=== PATIENT | female | born 1955 | race Caucasian/White ===

== ENCOUNTER 2019-04-09 14:19 | Inpatient (IN) ==
--- NOTE | 2019-04-09 15:58 | Diag Imaging Result Doc PS360 ---
EXAM: CHEST-PORTABLE 04/09/2019 HISTORY: Chest Pain TECHNIQUE: AP portable upright at 1541 COMMENT: There are perihilar opacities bilaterally which have not changed appreciably since 10/24/2017. Considering differences in projection and technique there has been no significant change. IMPRESSION: Stable chest. Electronically signed by Darwin Dumont 04/09/2019 3:56 PM
--- NOTE | 2019-04-09 15:59 | EKG Report ---
Test Performed on : 04/09/2019 3:37:15 PM Test Reason : Chest Pain Blood Pressure : / mmHG Vent. Rate : 068 BPM Atrial Rate : 068 BPM P-R Int : 142 ms QRS Dur : 084 ms QT Int : 404 ms P-R-T Axes : 057 070 052 degrees QTc Int : 429 ms Normal sinus rhythm. Normal ECG When compared with ECG of 24-OCT-2017 20:16, No significant change was found Confirmed by Anca Jones MD ([id number]) on 04/10/2019 1:00:13 PM
[2019-04-09] MEDS: NITROGLYCERIN TD SCH (16:23)
[2019-04-09] MEDS: MORPHINE IV PRN ×2 (16:24→20:52)
[2019-04-09 16:25] LABS: HEMATOCRIT 40.4 % (37.0-47.0); HEMOGLOBIN 13.1 g/dL (12.0-16.0); MCH 30.4 PG (27-31); MCHC 32.4 g/dL (33-37); MCV 93.7 FL (81-99); RBC 4.31 XMIL (4.2-5.4); WBC 12.49 X1000 (4.8-10.8)
[2019-04-09 16:26] LABS: BASO# 0.06 X1000 (0.0-0.2); BASO% 0.5 % (0.0-0.8); EOS# 0.22 X1000 (0.0-0.7); EOS% 1.8 % (0.0-10.0); IMM GRAN# 0.12 X1000 (0.0-0.04); LYMPH# 2.24 X1000 (1.2-3.4); LYMPH% 17.9 % (20.5-51.1); MONO# 1.23 X1000 (0.11-0.59); MONO% 9.8 % (1.7-9.3); MPV 9.4 FL (7.4-10.4); NEUT# 8.62 X1000 (1.4-6.5); PLT 380 X1000 (130-400); RDW 12.5 % (11.5-14.5)
[2019-04-09 16:32] LABS: INR 0.91; PROTIME 12.3 Seconds (11.0-16.0)
[2019-04-09 16:33] LABS: PTT 29.3 Seconds (22.3-41.8)
[2019-04-09 16:56] LABS: AGAP 13; ALB/GLOB RATIO 1.3; ALBUMIN 4.3 g/dL (3.5-5.0); ALKALINE PHOSPHATASE 109 U/L (32-104); BUN 17 mg/dL (8-22); CALCIUM 9.7 mg/dL (8.8-10.2); CHLORIDE 100 mmol/L (98-107); COSMO 284; CREATININE 0.7 mg/dL (0.5-0.9); ESTIMATED GFR > 60; GLUCOSE 119 mg/dL (70-104); GOT 20 U/L (10-30); GPT 15 U/L (10-36); SODIUM 141 mmol/L (136-145); TCO2 28 mmol/L (25-35); TOTAL BILIRUBIN 0.25 mg/dL (0.20-1.00); TOTAL PROTEIN 7.6 g/dL (6.3-8.3)
--- NOTE | 2019-04-09 18:12 | CONSULTATION ---
DATE OF CONSULTATION: 04/09/2019 IMPRESSION: 1. Constant chest heaviness for the past 3 days or so without interruption. ECG normal and troponin normal. Clinical presentation atypical for myocardial ischemia. 2. Chronic obstructive pulmonary disease. 3. Anxiety/depression. 4. Hypertension. 5. Fibromyalgia. RECOMMENDATIONS: 1. Follow up cardiac enzymes. 2. If cardiac enzymes are negative, pursue cardiac stress study. HISTORY: This 64-year-old white female with a past history of hypertension, anxiety/depression, fibromyalgia, and obesity was admitted to the intensive care unit because of chest discomfort. She has had recent issues with cough and wheezing over a week ago. She was treated for bronchitis. She did not initially take steroid taper, but ultimately got on this last week. She relates for the last 3 days or so she has had constant heaviness in the chest. There have been no other associated symptoms. She does relate also being somewhat anxious and having difficulty with insomnia. However, she has not noted that her usual anxiolytic Klonopin has made much difference in her symptoms nor have bronchodilator inhalers made much difference in her chest symptoms. She returned for follow-up with Dr. Whitt today, and because of persistent chest discomfort, was referred for admission. It is noteworthy that she had evaluation for chest symptoms and preoperative evaluation last year with negative stress myocardial perfusion study and normal echocardiography. She also had a chest CT scan which was negative for evidence of pulmonary embolus. PAST MEDICAL HISTORY: 1. Hypertension. 2. Obesity. 3. Chronic obstructive pulmonary disease. 4. Anxiety/depression. 5. Fibromyalgia. PAST SURGICAL HISTORY: Includes cholecystectomy hysterectomy, tonsillectomy, unspecified back surgery, and unspecified neck surgery. ALLERGIES: She is allergic or intolerant to Cefaclor, penicillins, and adhesive. MEDICATIONS PRIOR TO ADMISSION: As listed. SOCIAL HISTORY: She has history of previous cigarette use in the past, but no longer smokes. FAMILY HISTORY: Negative for premature coronary artery disease. REVIEW OF SYSTEMS: Pulmonary: Noteworthy for some exertional shortness of breath. She has had recent cough which was nonproductive, as well as previous wheezing. Wheezing seems to have abated. Gastrointestinal: Review of systems negative. She is not aware of any tendency for gastroesophageal reflux disease. Constitutional: Review of systems negative/noncontributory. PHYSICAL EXAMINATION: General: Exam reveals a somewhat anxious-appearing obese older white female in no distress on supplemental oxygen per nasal cannula. Vital signs: Blood pressure 119/56, heart rate 87 and irregular, oxygen saturation 96%. HEENT: Extraocular intact. Mucous membranes moist. Neck: Supple without jugular venous distension and there are no carotid bruits. Chest: Auscultation of the chest reveals clear lung carlson bilaterally. Cardiac: Exam reveals a regular rate and rhythm without appreciable murmur, rub, or gallop. Abdomen: Soft. Bowel sounds are normal. Extremities: Without edema. Neurologic: Exam reveals her to be alert and fully oriented. Speech is fluent. She moves all 4 extremities equally well. Skin: Warm and dry. Psychiatric: Exam reveals her to be somewhat anxious. DIAGNOSTIC STUDIES: A 12 lead EKG demonstrates normal sinus rhythm and is within normal limits. Laboratory data includes a white blood cell count 12.49, hematocrit 40.4, hemoglobin 13.1, platelet count 380,000. D-dimer less than 0.27. Sodium 141, potassium 4.0, chloride 100 carbon dioxide 28, BUN 17 creatinine 0.7, glucose 119. CPK 64, troponin T less than 0.01. cc: MD Frandy Cao Jr, MD
[2019-04-09] MEDS: KLONOPIN PO SCH (20:52)
[2019-04-09] MEDS: DESYREL PO SCH (20:52)
[2019-04-09] MEDS: CYMBALTA PO SCH (20:52)
[2019-04-10] MEDS: NITROGLYCERIN TD SCH ×3 (05:53→21:21)
[2019-04-10] MEDS: BREO ELLIPTA 200/25 MCG INH INH SCH (07:53)
--- NOTE | 2019-04-10 09:35 | PROGRESS NOTE ---
DATE: 04/10/2019 SUBJECTIVE: The patient says she feels much better. I asked her if she had any chest pain, she says just very slight. OBJECTIVE: Vital Signs: Stable with a blood pressure 123/66, respirations 16, pulse 64, oxygen saturation 90 to 92 percent on room air. Temperature is 97.9 degrees Fahrenheit. HEENT: She is normocephalic. EOMS intact. PERRLA. Throat clear. Lungs: Clear to auscultation and percussion without rhonchi, rales, or wheezes. Heart: Regular rate and rhythm without murmurs, gallops, friction rubs. Abdomen: Soft. Active bowel sounds. No organomegaly or tenderness. Neurological: Intact grossly. ASSESSMENT AND PLAN: Enzyme studies for cardiac damage have all been negative. Cardiology is seeing and will plan a stress test. cc: Frandy Whitt Jr, MD
[2019-04-10] MEDS: CYMBALTA PO SCH ×2 (09:53→20:11)
[2019-04-10] MEDS: AVAPRO PO SCH (09:53)
[2019-04-10] MEDS: HYDROCHLOROTHIAZIDE PO SCH (09:53)
[2019-04-10] MEDS ORDERED: LEXISCAN ONE (13:17)
[2019-04-10] MEDS: MORPHINE IV PRN ×2 (15:17→21:43)
--- NOTE | 2019-04-10 16:26 | Diag Imaging Result Document ---
PROCEDURE NAME: MYOCARDIAL PERF SCAN, STR/REST - 04/10/2019 LEXISCAN SESTAMIBI INTERPRETATION: SUMMARY: The patient was administered 12.6 mCi of technetium-99m sestamibi, after which resting cardiac images were obtained. The patient was subsequently administered Lexiscan 0.4 mg intravenously, after which the heart rate went from 65 beats per minute to 85 beats per minute, and the blood pressure went from 137/65 to 115/54. With Lexiscan, the patient denied chest discomfort. Following the administration of Lexiscan, the patient was administered 39.9 mCi of technetium-99m sestamibi, after which gated stress cardiac images were obtained. Baseline ECG demonstrated sinus rhythm. With Lexiscan, there were no diagnostic ST-segment changes. SPECT images were reconstructed in the short, horizontal long, and vertical long axes. Review of these images demonstrated mildly diminished activity in the apical anterior wall and apex left ventricle on stress images which improves on resting images. Gated images demonstrate a calculated left ventricular ejection fraction of 73% with symmetrical wall motion/thickening. Review of planar images suggests significant breast attenuation artifact. CONCLUSIONS: 1. Adequate response to Lexiscan. 2. Clinically negative for chest pain. 3. Electrocardiographically negative for Lexiscan-induced myocardial ischemia. 4. Lexiscan sestamibi images demonstrate mild reversibility in the apical anterior wall and apex. Although breast attenuation artifact may be contributing to appearance, Lexiscan-induced myocardial ischemia in this region cannot entirely be excluded. Normal left ventricular systolic function demonstrated. cc: MD Kath Cao PA
--- NOTE | 2019-04-10 17:26 | CARDIOLOGY PROGRESS NOTE ---
DATE: 04/10/2019 SUBJECTIVE: Patient reports feeling better and has not had any further chest discomfort. She denies shortness of breath on room air. OBJECTIVE: Vital Signs: Blood pressure 124/63, heart rate 84, oxygen saturation 93% to 95% on room air. Neck: There is no significant jugular venous distention. Chest: Clear to auscultation bilaterally. Cardiac: Reveals a regular rate and rhythm without appreciable murmur, rub, or gallop. Extremities: There is no evidence of peripheral edema. DIAGNOSTIC STUDIES: Laboratory data includes initial troponin less than 0.01 and follow-up troponins of less than 0.01 and less than 0.01 thereafter. Lexiscan myocardial perfusion study demonstrates mild reversibility in the apical anterior wall and apex with some evidence of breast attenuation artifact on both stress and resting images. Although breast attenuation may be contributing to appearance of study, Lexiscan-induced myocardial ischemia in the distribution of left anterior descending coronary artery cannot be excluded. Normal left ventricular systolic function demonstrated. IMPRESSION: 1. Acute chest pain syndrome. No evidence of myocardial insult, despite extended duration of chest symptoms. 2. Chronic obstructive pulmonary disease. 3. Anxiety/depression. 4. Hypertension. 5. Fibromyalgia. RECOMMENDATIONS: Given patient's clinical presentation with prominent chest discomfort and apparent tendency for recurrent presentations with chest discomfort, it would appear that definitive evaluation with cardiac catheterization/coronary angiography would be the best course of action, as her Lexiscan sestamibi study does not exclude inducible myocardial ischemia in the distribution of the left anterior descending coronary artery. This was discussed with the patient at length, including the potential hazards of cardiac catheterization and selective coronary angiography. She wished to proceed with definitive evaluation with coronary angiography, and this will be scheduled for tomorrow. cc: MD Frandy Cao Jr, MD
[2019-04-10] MEDS: KLONOPIN PO SCH (20:11)
[2019-04-10] MEDS: DESYREL PO SCH (20:11)
[2019-04-11] MEDS: NITROGLYCERIN TD SCH ×4 (06:28→21:30)
[2019-04-11] MEDS: BREO ELLIPTA 200/25 MCG INH INH SCH (08:17)
[2019-04-11 08:59] LABS: BASO# 0.05 X1000 (0.0-0.2); BASO% 0.4 % (0.0-0.8); EOS# 0.22 X1000 (0.0-0.7); EOS% 1.9 % (0.0-10.0); HEMATOCRIT 38.5 % (37.0-47.0); HEMOGLOBIN 12.5 g/dL (12.0-16.0); IMM GRAN# 0.08 X1000 (0.0-0.04); IMM GRAN% 0.7 % (0.0-0.5); LYMPH# 2.29 X1000 (1.2-3.4); LYMPH% 19.8 % (20.5-51.1); MCH 30.2 PG (27-31); MCHC 32.5 g/dL (33-37); MONO# 1.17 X1000 (0.11-0.59); MONO% 10.1 % (1.7-9.3); MPV 9.2 FL (7.4-10.4); NEUT# 7.74 X1000 (1.4-6.5); NEUT% 67.1 % (42.2-75.2); PLT 363 X1000 (130-400); RBC 4.14 XMIL (4.2-5.4); RDW 12.2 % (11.5-14.5); WBC 11.55 X1000 (4.8-10.8)
[2019-04-11] MEDS: CYMBALTA PO SCH ×2 (09:10→20:39)
[2019-04-11] MEDS: AVAPRO PO SCH (09:10)
[2019-04-11] MEDS: HYDROCHLOROTHIAZIDE PO SCH (09:10)
[2019-04-11 09:15] LABS: AGAP 9; ALB/GLOB RATIO 1.1; ALBUMIN 3.5 g/dL (3.5-5.0); ALKALINE PHOSPHATASE 85 U/L (32-104); BUN 17 mg/dL (8-22); CHLORIDE 97 mmol/L (98-107); COSMO 269; CREATININE 0.5 mg/dL (0.5-0.9); ESTIMATED GFR > 60; GLUCOSE 122 mg/dL (70-104); GOT 18 U/L (10-30); GPT 17 U/L (10-36); MAGNESIUM 1.6 mg/dL (1.5-2.7); POTASSIUM 3.9 mmol/L (3.5-5.1); SODIUM 133 mmol/L (136-145); TCO2 27 mmol/L (25-35); TOTAL BILIRUBIN 0.32 mg/dL (0.20-1.00); TOTAL PROTEIN 6.8 g/dL (6.3-8.3)
[2019-04-11 09:20] LABS: INR 0.93; PROTIME 12.6 Seconds (11.0-16.0); PTT 29.8 Seconds (22.3-41.8)
--- NOTE | 2019-04-11 09:20 | PROGRESS NOTE ---
DATE: 04/11/2019 SUBJECTIVE: The patient says she still has a little chest pain, but she can barely perceive it. This has been continuous. Says she developed it before coming in the hospital, but it did get much better when she got in the hospital. She had a stress test yesterday that was equivocal, and it has been decided to do a heart catheterization to answer the question. She is in agreement with this with Cardiology. OBJECTIVE: Vital Signs: Show blood pressure 130/81, respirations 13, pulse 69, temperature 98.9 degrees Fahrenheit. HEENT: She is normocephalic. EOMS intact. PERRLA. Throat clear. Lungs: Clear to auscultation and percussion without rhonchi, rales, or wheezes. Heart: Regular rate and rhythm without murmurs, gallops, friction rubs. Abdomen: Soft. Active bowel sounds. No organomegaly or tenderness. Neurologic: Exam intact grossly. ASSESSMENT: Chest pain. PLAN: Heart catheterization and evaluation after that. cc: Frandy Whitt Jr, MD
[2019-04-11] MEDS: MORPHINE IV PRN ×2 (09:23→17:42)
--- NOTE | 2019-04-11 09:50 | Diag Imaging Result Doc PS360 ---
CHEST-1 VIEW - 04/11/2019 INDICATION: heart cath today COMPARISON: 04/09/2019 FINDINGS: There is a stable left infrahilar pulmonary nodular opacity, corresponding with an old calcified granuloma on the CT from last year. This measures about 2 cm. Stable pericardial fat pads bilaterally. Heart size and pulmonary vascularity is normal. No pneumothorax or pleural effusion. IMPRESSION: No acute disease or change from prior. Electronically signed by Amandeep Mata 04/11/2019 9:48 AM
[2019-04-11] MEDS ORDERED: XYLOCAINE 1% ONE (12:51)
[2019-04-11] MEDS ORDERED: HEPARIN 1000 UNITS/NS 2,000 UNIT/1,000 ML IV.SOLN ONE (12:51)
[2019-04-11] MEDS ORDERED: VERSED ONE (13:44)
[2019-04-11] MEDS ORDERED: ANESTHESIA PB SET 88 IN 5742 ONE (13:45)
[2019-04-11] MEDS ORDERED: NS 250 ML ONE (13:45)
[2019-04-11] MEDS ORDERED: MORPHINE ONE ×2 (13:45→14:11)
[2019-04-11] MEDS ORDERED: NS 1,000 ML IV SCH (15:00)
--- NOTE | 2019-04-11 15:46 | CARDIAC CATH REPORT ---
PROCEDURE NAME: - PROCEDURE PERFORMED: 1. Left heart catheterization. 2. Selective coronary angiography. 3. Left ventriculography. INDICATIONS: Acute chest pain syndrome with abnormal Lexiscan myocardial perfusion study demonstrating mild reversibility in the anterior wall. ENTRY SITE: Right femoral artery. CATHETERS USED: 5-Kenyan JL4, 3DRC, and angled pigtail. TECHNIQUE: After intravenous sedation with Versed and morphine, local anesthesia with lidocaine was applied over the right femoral artery. Arterial access was established with placement of a 5- Kenyan sheath in the right femoral artery using modified Seldinger technique. Selective coronary angiography was performed followed by left heart catheterization and left ventriculography. Upon completion of procedure, arterial sheath was removed from right femoral artery and hemostasis facilitated with manual pressure. The patient tolerated the procedure without apparent complications. FINDINGS: HEMODYNAMICS: Aortic pressure 113/63, left ventricular pressure 127 over EDP of 12. Comments on hemodynamics: There is no significant gradient across the aortic valve demonstrated on pullback from left ventricle. ANGIOGRAPHY: 1. Left ventriculogram. Considerable ventricular ectopy was observed during ventriculography. Estimated left ventricular ejection fraction is approximately 60%. No regional wall motion abnormalities are evident. There is no significant mitral regurgitation. 2. Left main coronary artery: The left main coronary artery is free of significant coronary stenosis. 3. Left anterior descending coronary artery. The left anterior descending coronary artery demonstrates a very mild (10% to 20%) focal narrowing very proximally. The remainder of the left anterior descending coronary artery and its branches demonstrate mild luminal irregularities, but no significant coronary stenosis. 4. Left circumflex coronary artery: The left circumflex coronary artery and its branches demonstrate very mild luminal irregularities, but no significant coronary stenosis. 5. Right coronary artery: The right coronary artery is dominant and is free of any significant coronary stenosis. CONCLUSIONS: 1. Normal left ventricular systolic function without regional wall motion abnormality evident. 2. Right dominant coronary anatomy with very mild nonobstructive coronary atherosclerosis. RECOMMENDATIONS: 1. Medical management of patient's coronary atherosclerosis along with coronary risk factor modification. 2. Consider alternative etiologies for patient's chest symptoms, given the nonobstructive nature of her coronary atherosclerosis. cc: MD Frandy Cao Jr, MD
[2019-04-11] MEDS ORDERED: TYLENOL PO PRN (16:02)
[2019-04-11] MEDS ORDERED: MAGNESIUM SULFATE 3 GM in NS 100 ML IV PRN (16:02)
[2019-04-11] MEDS ORDERED: PERCOCET-5 PO PRN (16:02)
[2019-04-11] MEDS ORDERED: XANAX PO PRN (16:02)
[2019-04-11] MEDS ORDERED: KLOR-CON PO PRN ×3 (16:02)
[2019-04-11] MEDS ORDERED: MAGNESIUM SULFATE 2 GM in STERILE WATER INJ. 50 ML IV PRN ×4 (16:02)
[2019-04-11] MEDS ORDERED: CEPACOL SORE THROAT LOZENGE MT PRN (16:02)
[2019-04-11] MEDS ORDERED: RESTORIL PO PRN (16:02)
[2019-04-11] MEDS ORDERED: MILK OF MAGNESIA PO PRN (16:02)
[2019-04-11] MEDS ORDERED: DULCOLAX PR PRN (16:02)
[2019-04-11] MEDS ORDERED: ZOFRAN IV PRN (16:02)
[2019-04-11] MEDS ORDERED: NITROGLYCERIN SL PRN (16:02)
--- NOTE | 2019-04-11 16:42 | EKG Report ---
Test Performed on : 04/11/2019 4:31:20 PM Test Reason : Post cath Blood Pressure : / mmHG Vent. Rate : 085 BPM Atrial Rate : 085 BPM P-R Int : 142 ms QRS Dur : 088 ms QT Int : 378 ms P-R-T Axes : 073 059 029 degrees QTc Int : 449 ms Normal sinus rhythm. Right atrial enlargement Borderline ECG When compared with ECG of 09-APR-2019 15:37, No significant change was found Confirmed by Anca Jones MD ([id number]) on 04/15/2019 12:03:46 PM
[2019-04-11] MEDS: KLONOPIN PO SCH (20:38)
[2019-04-11] MEDS: DESYREL PO SCH (20:39)
[2019-04-12] MEDS: NITROGLYCERIN TD SCH (05:14)
[2019-04-12 06:25] LABS: CREATININE 0.6 mg/dL (0.5-0.9); MAGNESIUM 1.7 mg/dL (1.5-2.7)
[2019-04-12 08:11] VITALS: BP 131/52
[2019-04-12] MEDS: HYDROCHLOROTHIAZIDE PO SCH (08:34)
[2019-04-12] MEDS: AVAPRO PO SCH (08:34)
[2019-04-12] MEDS: CYMBALTA PO SCH (08:34)
[2019-04-12] MEDS ORDERED: ASPIRIN PO SCH (09:00)
[2019-04-12] MEDS ORDERED: PNEUMOVAX 23 IM ONE (09:15)
[2019-04-12] MEDS: BREO ELLIPTA 200/25 MCG INH INH SCH (09:21)
--- NOTE | 2019-04-15 09:34 | DISCHARGE SUMMARY ---
ADMISSION DATE: 04/09/2019 DISCHARGE DATE: 04/12/2019 CONSULTATION: Dr. Dominic Humphreys, Cardiology. FINAL DIAGNOSIS: Chest pain. Cardiac etiology ruled out. SECONDARY DIAGNOSES: 1. Asthma. 2. Depression. 3. Headaches. 4. Hypertension. 5. Obesity. 6. The patient also has shortness of breath. 7. Lumbar disk disease. 8. History of histoplasmosis. 9. Posttraumatic stress disorder. 10. Attention-deficit disorder. HISTORY OF PRESENT ILLNESS: The patient presented with a 2-day history of chest pain that was a chest tightness and squeezing continuously for 2 days. She says she had not been wheezing. Placed her in the hospital and we ruled out DC with serial enzymes. Stress test was equivocal, so we proceeded to heart catheterization which showed no significant blockage. Her chest pain did get better while she was in the hospital. She was discharged home on her regular medications and further workup will be done as an outpatient. PHYSICAL EXAMINATION: On discharge vital signs show blood pressure 111/56, respirations 21, pulse 69, temperature 98.2 degrees Fahrenheit. HEENT: She is normocephalic. EOMs intact. PERRLA. Throat clear. Lungs are clear to auscultation and percussion without rhonchi, rales, or wheezes. Heart: Regular rate and rhythm without murmurs, gallops, friction rubs. Abdomen: Soft. Active bowel sounds. No organomegaly or tenderness. Neurologic: Exam intact grossly. Patient has been anxious. PLAN: To be seen back in my office within a week after discharge. cc: Frandy Whitt Jr, MD
== END 2019-04-12 09:30 | disposition home or self-care (01) | DRG 287 ==
LOC: DIRADM 14:19 → OBSVTOIN 14:19 → INTOOBSV 14:19 → ICU 15:13
PROVIDERS: ADMIT Emergency Medicine; ATTEND Emergency Medicine